=== PATIENT | male | born 1980 | race Two or more races ===

== ENCOUNTER 2017-06-16 08:12 | Outpatient (CLI) | payer OTHER | END 2017-06-16 08:22 | disposition home or self-care (01) | LOC: SONOGRAMA 08:12 | DX: I86.1 Scrotal varices (principal) ==

== ENCOUNTER 2021-06-07 19:15 | Inpatient (IN) | payer OTHER ==
[~2021-06-07] VITALS: Ht 167.6 cm; Wt 74.4 kg
[2021-06-07] MEDS ORDERED: TESTIM5 GM (19:42)
[2021-06-07] MEDS ORDERED: LEVOTHYROXINE25 MCG (19:42)
[2021-06-16] MEDS ORDERED: PROTONIX40 MG PO (07:07)
== END 2021-06-16 13:35 | disposition home or self-care (01) | DRG 330 ==
LOC: ER 19:15 → SEC-K 06-08 09:39 → SURG 06-08 17:34 → SURH 06-08 17:56
PROVIDERS: ADMIT Surgery; ATTEND Surgery
PROC: BW21ZZZ Computerized Tomography (CT Scan) of Abdomen and Pelvis (ICD-10-PCS; 2021-06-07)
PROC: 0DB80ZZ Excision of Small Intestine, Open Approach (ICD-10-PCS; 2021-06-08)
PROC: 0DNW0ZZ Release Peritoneum, Open Approach (ICD-10-PCS; 2021-06-08)
PROC: 0DBK0ZZ Excision of Ascending Colon, Open Approach (ICD-10-PCS; principal; 2021-06-08 13:00)
PROC: 0DH67UZ Insertion of Feeding Device into Stomach, Via Natural or Artificial Opening (ICD-10-PCS; 2021-06-10)
PROC: 3E0G76Z Introduction of Nutritional Substance into Upper GI, Via Natural or Artificial Opening (ICD-10-PCS; 2021-06-10)
PROC: BW21ZZZ Computerized Tomography (CT Scan) of Abdomen and Pelvis (ICD-10-PCS; 2021-06-13)
DX: K56.51 Intestinal adhesions [bands], with partial obstruction (principal); K91.89 Other postprocedural complications and disorders of digestive system; J95.89 Other postprocedural complications and disorders of respiratory system, not elsewhere classified; J98.11 Atelectasis; Z20.822 Contact with and (suspected) exposure to COVID-19; K56.7 Ileus, unspecified

== ENCOUNTER 2024-10-30 16:23 | Emergency (ER) | payer OTHER ==
[~2024-10-30] VITALS: Ht 167.6 cm; Wt 77.1 kg
[~2024-10-30 16:23] MED LIST: LEVOTHYROXINE25 MCG; PROTONIX40 MG PO; TESTIM5 GM
[2024-10-30] MEDS ORDERED: PRAVASTATIN SOD40 MG PO (17:13)
[2024-10-30] MEDS ORDERED: DIATRIZOATE MEGLUMINE, SODIUM 30 ML BOTTLE ONE (18:55)
[2024-10-30] MEDS ORDERED: 0.9 % SODIUM CHLORIDE 500 ML IV ONE (19:00)
[2024-10-30] MEDS ORDERED: DEXAMETHASONE SODIUM PHOSPHATE 4 MG/ML VIAL IV ONE (19:15)
[2024-10-30] MEDS ORDERED: KETOROLAC TROMETHAMINE 30 MG VIAL IV ONE (19:15)
[2024-10-30] MEDS ORDERED: KETOROLAC TROMETHAMINE 30 MG VIAL ONE (19:35)
[2024-10-30] MEDS ORDERED: DEXAMETHASONE SODIUM PHOSPHATE 4 MG/ML VIAL ONE (19:35)
[2024-10-30 20:11] LABS: BASO % 0.6 % (0.1-1.2); EOS # 0.12 (0.04-0.54); EOS % 1.0 % (0.7-7.0); LYMPH # 2.41 (1.18-3.74); LYMPH % 20.1 % (19.3-53.1); MEAN PLATELET VOLUME 11.40 fl (9.4-12.4); MONO # 1.07 (0.24-0.82); MONO % 8.9 % (4.7-12.5); NEUT # 8.31 (1.56-6.13); NEUT % 69.2 % (34.0-71.1); RED CELL DISTRIBUTION WIDTH 12.5 % (11.6-14.4)
[2024-10-30 20:23] LABS: URINE APPEARANCE Clear; URINE BILIRRUBIN Negative (NEGATIVE); URINE BLOOD Small; URINE COLOR Yellow; URINE GLUCOSE Negative (NEGATIVE); URINE KETONE Negative (NEGATIVE); URINE LEUKOCYTE Negative; URINE NITRATE Negative; URINE PROTEIN Negative (NEGATIVE); URINE UROBILINOGEN 0.2 E.U./dl
[2024-10-30 20:27] LABS: URINE RBC 6.0 uL (0.0-20.8)
[2024-10-30 20:30] LABS: URINE BACTERIA 0 uL (0.0-1933); URINE CAST 0.00 uL (0.0-1.40); URINE EPITHELIAL CELLS 0.6 uL (0.0-38.8); URINE WBC 1.2 uL (0.0-23.2)
[2024-10-30 20:38] LABS: ALT/SGPT 23.0 U/L (12-78); AST/SGOT 12.0 U/L (15-37); BILIRUBIN TOTAL 0.64 mg/dL (0.3-1.2); BUN CREA RATIO 18.0 (7.0-25.0); CREATININE SERUM 0.99 mg/dL (0.70-1.30); GFR 82.5; GLOBULINA 3.7 G/DL (2.4-3.5); GLUCOSE FASTING 89.0 mg/dL (65-100); OSMOLALITY SERUM 281.0 MOSM/KG (275-295); PROSTATIC SPECIFIC ANTIGEN 0.565 NG/ML (0.010-4.00)
[2024-10-30] MEDS ORDERED: CIPRO500 MG PO (22:36)
[2024-10-30] MEDS ORDERED: DICLOFENAC SODI50 MG PO (22:36)
[2024-10-30] MEDS ORDERED: MEDROLPACK PO (22:36)
[2024-10-30] MEDS ORDERED: ANALPRAM HC 2.530 GM RECTAL (22:36)
[2024-10-30] MEDS ORDERED: MIRALAX17 GM PO (22:37)
== END 2024-10-30 22:48 | disposition home or self-care (01) ==
LOC: ER 16:23
PROVIDERS: General Practice
DX: K62.89 Other specified diseases of anus and rectum (principal); E03.8 Other specified hypothyroidism
CPT/HCPCS: 36415; 74177; Q9965